=== PATIENT | female | born 1970 | race Caucasian/White ===

== ENCOUNTER → 2016-10-30 | Outpatient (CLI) | payer BC ==
--- NOTE | 2016-10-30 14:45 | DIAGNOSTIC IMAGING REPORT ---
LEFT FOOT 3 VIEWS CLINICAL HISTORY: Crushing injury. FINDINGS: 3 views of the left foot are obtained. No prior studies are available for comparison at the time of dictation. The skeletal structures are well mineralized. There is no radiographic evidence of left foot fracture. The joint spaces of the foot are well-maintained. Dorsal soft tissue edema is noted. IMPRESSION: Dorsal soft tissue swelling with no radiographic evidence of left foot fracture. Electronically signed by: David Newell M.D. 10/30/2016 2:44 PM Dictated Date/Time: 10/30/2016 2:42 PM
== END | disposition home or self-care (01) ==
LOC: C.RAD 14:24
PROVIDERS: ATTEND Family Medicine
DX: S97.82XA Crushing injury of left foot, initial encounter (principal); V29.3XXA Motorcycle rider (driver) (passenger) injured in unspecified nontraffic accident, initial encounter; M79.9 Soft tissue disorder, unspecified